=== PATIENT | female | born 1930 | race Caucasian/White ===

== ENCOUNTER 2017-08-08 12:33 | Observation (INO) ==
[2017-08-08 13:33] LABS: Basophils % 0.3 %; Eosinophils % 0.1 %; Hematocrit 40.9 % (35.3-44.9); Hemoglobin 13.3 g/dL (11.5-15.4); Immature Granulocytes % 0.3 % (0-4); Lymphocytes # 2.8 K/mcL (0.6-4.6); Lymphocytes % 36.8 %; Mean Corpuscular HGB Conc 32.5 g/dL (31.6-35.5); Mean Corpuscular Hemoglobin 27.7 pg (28.0-33.3); Mean Platelet Volume 9.2 fL (9.4-12.4); Monocytes # 0.6 K/mcL (0.0-1.3); Neutrophils # 4.1 K/mcL (1.6-8.9); Platelet Count 241 K/mcL (140-400); Red Blood Count 4.81 M/mcL (3.82-4.97); Red Cell Distribution Width 14.4 % (11.5-14.5); Segmented Neutrophils % 54.5 %
[2017-08-08 14:03] LABS: Potassium 3.3 mEq/L (3.5-5.1)
--- NOTE | 2017-08-08 14:10 | Emergency Department Note ---
START Narrative - START START: I examined this patient and my medical decision-making was reviewed with the Resident Physician. I agree with the documented findings, disposition and treatment plan as described except to the extent set forth below. 86-year-old female presented to the emergency room with cough and shortness of breath. Patient states she has been sick for over a week. States that they treated her for flu like symptoms about a week and a half ago. She feels more short of breath and is coughing more now. She denies any chest pain. She does not or home oxygen. No smoking. She lives at home with her . She states she came in the ER due to the increasing coughing and shortness of breath. She states she has not felt better in the past week. They were concerned that she was developing a pneumonia. Her x-ray does not show pneumonia today. We will workup from a cardiac standpoint as well for the shortness of breath and dyspnea on exertion.
[2017-08-08] MEDS ORDERED: Ipratropium/Albuterol Neb 3 ML IH ONE (14:40)
--- NOTE | 2017-08-08 14:49 | Emergency Department Note ---
Disposition Clinical Impression: Wheezing, Cough, Weakness Chest pain Qualifiers: Chest pain type: unspecified Qualified Code(s): R07.9 - Chest pain, unspecified Disposition: Admitted As Inpatient Condition: Good Referrals: Angely Michaels CNP [Primary Care Provider] - SOB HPI - General Chief Complaint: ED Shortness of Breath/Dyspnea Stated Complaint: JORGE,Cough Time Seen by Provider: 08/08/17 13:00 Source: patient Limitations: no limitations Nursing Notes Reviewed: Yes Vital Signs Reviewed: Yes - History of Present Illness Patient presents for evaluation of chest pain and shortness of breath. Shortness of breath and cough with intermittent sputum production started proximally 2 weeks ago. She was seen by her PCP and started on Tamiflu for what they thought was influenza. No specific testing was done. The patient has continued to have symptoms with no relief to the Tamiflu. She developed shortness of breath last night with increased work of breathing. concerned with her overall status as well as associated weakness and fatigue and brought her to the emergency department to be evaluated. On evaluation she complains of shortness of breath and cough. Family states that she has had intermittent subjective fevers. The patient states that she had a burning left- sided chest pain but is unable to further characterize. Not worse with walking. Not worse with inspiration. "Just a burning". - Related Data Home Medications Medication Instructions Recorded Confirmed Benzonatate [Tessalon] 100 mg PO TID PRN 08/08/17 08/08/17 Lisinopril [Zestril] 20 mg PO DAILY 08/08/17 08/08/17 hydroCHLOROthiazide 25 mg PO DAILY 08/08/17 08/08/17 [Hydrochlorothiazide] Allergies Allergy/AdvReac Type Severity Reaction Status Date / Time No Known Allergies Allergy Verified 08/08/17 12:40 Review of Systems: CONSTITUTIONAL: No weight loss, fever, chills, weakness or fatigue. HEENT: Eyes: No visual changes. Ears, Nose, Throat: No hearing loss, difficulty talking or unable to swallow. SKIN: No rash or itching. CARDIOVASCULAR: Chest pain No palpitations or edema. RESPIRATORY: Shortness of breath with cough but no sputum production GASTROINTESTINAL: No anorexia, nausea, vomiting or diarrhea. No abdominal pain or blood. GENITOURINARY: No burning on urination or hematuria. NEUROLOGICAL: No headache, dizziness, syncope, paralysis, ataxia, numbness or tingling in the extremities. No change in bowel or bladder control. MUSCULOSKELETAL: No muscle pain, back pain, joint pain or stiffness. Past Medical History - Past Medical History Medical history: Reports: non-contributory, hypertension Psychiatric history: Reports: no psych history - Social History Smoking Status: Never smoker Smokeless Tobacco Status: No Alcohol use: Reports: none Drug use: Reports: none Physical Exam General: Well appearing, nontoxic, no acute distress Head: Normocephalic Atraumatic Eyes: PERRL, EOMI ENT: Airway patent, no stridor Neck: supple, no meningismus Chest: Diffuse expiratory wheezing Cardiac: Regular rate and rhythm, no murmurs, rubs or gallops Abdomen: soft, nontender, nondistended; no guarding, rebound, or tenderness to percussion Musculoskeletal: Calves symmetric, nontender, no palpable cord Skin: No rash, normal skin tone Neuro: Alert and Oriented to person, place, and time; No focal deficit, CN 2-12 symmetric and intact - General Limitations: no limitations General appearance: alert, in no apparent distress Course - Reevaluation(s) Reevaluation #1: Patient's initial evaluation does not show specific cause. Patient does have wheezing with no history of COPD. Chest x-ray shows lengthened diaphragms as well as elongated heart compared to previous. Patient received breathing treatment and steroids. Patient influenza is negative. Patient was walked in the emergency department. Upon returning to the bed her pulse ox was 90%. I discussed with her her further treatment options and the patient and her family state that due to her having more trouble breathing and a harder time getting around but do not feel comfortable taking her home and following up with PCP. At this time, due to the worsening respiratory status and wheezing and weakness with associated chest pain - patient will be brought in to the hospital for further evaluation. - Consultations Consultation #1: Discussed with hospitalist, Dr. Galvin. Patient accepted for admission. Vital Signs Temperature 98.0 F 08/08/17 12:36 Pulse Rate 92 08/08/17 12:36 Respiratory Rate 18 08/08/17 12:36 Blood Pressure 151/68 08/08/17 12:36 O2 Sat by Pulse Oximetry 94 08/08/17 12:36 Temperature 98.0 F 08/08/17 12:36 Pulse Rate 88 08/08/17 16:18 Respiratory Rate 18 08/08/17 16:18 Blood Pressure 147/85 08/08/17 16:18 O2 Sat by Pulse Oximetry 95 08/08/17 16:18 Oxygen Delivery Oxygen Delivery Nasal Cannula Shortness of Breath/Dyspnea - Medical Records Medical records reviewed: Yes I reviewed the patient's medical records. - Lab Data Lab results reviewed: Yes I reviewed the patient's lab results. Result diagrams: 08/08/17 13:23 08/08/17 13:23 Lab Results 08/08/17 08/08/17 08/08/17 Range/Units 13:23 13:23 13:23 WBC 7.5 (4.3-11.1) K/mcL RBC 4.81 (3.82-4.97) M/mcL Hgb 13.3 (11.5-15.4) g/dL Hct 40.9 (35.3-44.9) % MCV 85.0 (83.0-100.0) fL MCH 27.7 L (28.0-33.3) pg MCHC 32.5 (31.6-35.5) g/dL RDW 14.4 (11.5-14.5) % Plt Count 241 (140-400) K/mcL MPV 9.2 L (9.4-12.4) fL Immature Gran % 0.3 (0-4) % Seg Neutrophils % 54.5 % Lymphocytes % 36.8 % Monocytes % 8.0 % Eosinophils % 0.1 % Basophils % 0.3 % Neutrophils # 4.1 (1.6-8.9) K/mcL Lymphocytes # 2.8 (0.6-4.6) K/mcL Monocytes # 0.6 (0.0-1.3) K/mcL Eosinophils # 0.0 (0.0-0.6) K/mcL Basophils # 0.0 (0.0-0.2) K/mcL Sodium 134 L (136-145) mEq/L Potassium 3.3 L (3.5-5.1) mEq/L Chloride 97 L (98-107) mEq/L Carbon Dioxide 26 (23-29) mEq/L BUN 18 (8-23) mg/dL Creatinine 1.25 H (0.60-1.20) mg/dL Est GFR ( Amer) 49 L (> 60) Est GFR (Non-Af Amer) 41 L (> 60) BUN/Creatinine Ratio 14 (6-26) Glucose 100 (70-105) mg/dL Calculated Osmolality 280 (280-300) Lactic Acid (0.5-2.2) mmol/L Calcium 9.0 (8.6-10.3) mg/dL Troponin I < 0.03 (< 0.04) ng/mL B-Natriuretic Peptide (Less than 100) pg/mL Specimen Rejected 08/08/17 08/08/17 08/08/17 Range/Units 13:23 13:23 15:05 WBC (4.3-11.1) K/mcL RBC (3.82-4.97) M/mcL Hgb (11.5-15.4) g/dL Hct (35.3-44.9) % MCV (83.0-100.0) fL MCH (28.0-33.3) pg MCHC (31.6-35.5) g/dL RDW (11.5-14.5) % Plt Count (140-400) K/mcL MPV (9.4-12.4) fL Immature Gran % (0-4) % Seg Neutrophils % % Lymphocytes % % Monocytes % % Eosinophils % % Basophils % % Neutrophils # (1.6-8.9) K/mcL Lymphocytes # (0.6-4.6) K/mcL Monocytes # (0.0-1.3) K/mcL Eosinophils # (0.0-0.6) K/mcL Basophils # (0.0-0.2) K/mcL Sodium (136-145) mEq/L Potassium (3.5-5.1) mEq/L Chloride (98-107) mEq/L Carbon Dioxide (23-29) mEq/L BUN (8-23) mg/dL Creatinine (0.60-1.20) mg/dL Est GFR ( Amer) (> 60) Est GFR (Non-Af Amer) (> 60) BUN/Creatinine Ratio (6-26) Glucose (70-105) mg/dL Calculated Osmolality (280-300) Lactic Acid 1.1 (0.5-2.2) mmol/L Calcium (8.6-10.3) mg/dL Troponin I (< 0.04) ng/mL B-Natriuretic Peptide 18 (Less than 100) pg/mL Specimen Rejected Hemolyzed - Radiology Data Radiology results reviewed: Yes I reviewed the patient's radiology results. - EKG Data EKG attestation: Yes I reviewed and interpreted this EKG. EKG results narrative: EKG shows sinus rhythm with occasional PVCs. Ventricular rate 84. MI 160. QRS 78. QTC 396. No significant ST elevations or depressions.
[2017-08-08] MEDS ORDERED: methylPREDNISolone 125 MG/2 ML VIAL IVP ONE (15:23)
[2017-08-08] MEDS ORDERED: Ondansetron 4 MG/2 ML VIAL IVP PRN (16:49)
[2017-08-08] MEDS ORDERED: Naloxone 0.4 MG/ML INJ IVP PRN (16:49)
[2017-08-08] MEDS ORDERED: *HR* HYDROcodone/Acet 5/325 mg TABLET PO PRN (16:49)
[2017-08-08] MEDS ORDERED: Acetaminophen 325 MG TABLET PO PRN (16:49)
--- NOTE | 2017-08-08 17:29 | Internal Med History&Physical ---
Date of Encounter: 08/08/17 Time of Encounter: 17:26 Assessment and Plan (1) COPD exacerbation Current visit: Yes Status: Acute Patient with no known history of COPD who presented to the ER with complaints of greater than 1 week shortness of breath, cough, weakness and hypoxia. Associated diffuse wheezing. Continue prednisone, Levaquin, DuoNeb's. Continue supplementation with oxygen. Recommended PFT as outpatient. Obtain echocardiogram to rule out pulmonary hypertension and diastolic dysfunction. (2) Hypoxia Current visit: Yes Status: Acute As above, wean as tolerated. (3) HTN (hypertension) Current visit: Yes Status: Chronic Controlled, continue home meds Qualifiers: Hypertension type: essential hypertension Qualified Code(s): I10 - Essential (primary) hypertension (4) CKD (chronic kidney disease) stage 3, GFR 30-59 ml/min Current visit: Yes Status: Chronic Renal function is at baseline, follow retroperitoneal [facility] Internal Medicine - H&P: HPI Chief complaint: Shortness of breeath Admitted From: Home Plans for Post Hospital Care: Home History of present illness: Ms. Mack is a 86 year old female who was previously independent prior to this illness with medical history of hypertension, chronic kidney disease stage III. Patient is seen and evaluated at the bedside with her children. Patient's illness dates to 1 week ago when she developed flulike symptoms with subjective fevers, cough, myalgias headaches pleuritic chest pain. She presented to her primary care physician treated her with Tamiflu, given to her flu test was negative. However patient reports since completing the medication , her symptoms have been worsening. She continues to have pleuritic chest pain , worse when she coughs, myalgias, and difficulty breathing associated with weakness. She denies sick contacts, recent travels. She denies orthopnea, she denies leg swelling. She denies nausea or vomiting or change in abdominal, bowel or urinary habits. The patient has never smoked, but has secondary exposure for several years. In the ER, patient was found to be hypoxic with oxygen saturation ranging from 80-89% on room air at rest improving with oxygen to 98%. This is after treatment with several nebs and Solu-Medrol. On examination patient is wheezing diffusely in both lung lopez. She has no pedal edema. Her workup is unremarkable except for hypokalemia of 3.3. BNP is negative. CBC is within normal limits. Renal function is at baseline. Chest x-ray is negative for infiltrates. Patient has a living will, and she is DNR/DNI. Past Med Surg Social Fam HX - Past Medical History Medical history: non-contributory, hypertension, renal disease Psychiatric history: no psych history - Past Surgical History Surgical History: cholecystectomy - Social History Smoking Status: Never smoker Smokeless Tobacco Status: No Alcohol use: none Drug use: none Internal Medicine - H&P: Meds Benzonatate [Tessalon] 100 mg PO TID PRN 08/08/17 [History] Lisinopril [Zestril] 20 mg PO DAILY 08/08/17 [History] hydroCHLOROthiazide [Hydrochlorothiazide] 25 mg PO DAILY 08/08/17 [History] 3 Allergy/AdvReac Type Severity Reaction Status Date / Time No Known Allergies Allergy Verified 08/08/17 12:40 All Systems PM: A 10-system review of systems was performed and is negative for pertinent findings except as documented above in the HPI. - Constitutional Constitutional: chills, fever(s) - EENT Eyes: no change in vision, no discharge, no pain, no photophobia Ears: no ear discharge, no ear pain, no tinnitus Nose, mouth and throat: no dysphagia, no nasal discharge, no neck pain, no sore throat - Cardiovascular Cardiovascular ROS IM: chest pain - Respiratory Respiratory: cough, dyspnea, chest congestion - Gastrointestinal Gastrointestinal: no abdominal pain, no diarrhea, no hematemesis, no hematochezia, no melena, no nausea, no vomiting - Genitourinary Genitourinary: no change in urinary stream, no dysuria, no flank pain, no hematuria - Musculoskeletal Musculoskeletal ROS IM: no numbness, no tingling - Integumentary Integumentary IM: no rash, no unusual bruising - Neurological Neurological ROS: no confusion, no convulsions, no focal weakness, no numbness, no tingling, no tremor(s) - Hematologic/Lymphatic Hematologic/Lymphatic: no easy bruising - Constitutional Vitals: Temp Pulse Resp BP Pulse Ox 98.0 F 75 16 155/69 96 08/08/17 12:36 08/08/17 17:14 08/08/17 17:14 08/08/17 17:14 08/08/17 17:14 Gen. examination: Patient is calm, sitting upright in bed in no form of distress. Afebrile, not tachycardic. Hypoxic on room air at rest oxygen saturation 89-90%. Improved promptly to 98% on 2 L of oxygen by nasal cannula. Head: Atraumatic HEENT: Dry oral mucosa, not cyanotic, not pale sclerae is anicteric. Neuro: Alert and oriented 3 extremities no slurred speech no focal deficits. chest examination: diffuse widespread bilateral expiratory wheezing in both lung lopez. no chest wall tenderness. heart: s1, s2 no murmurs. abdomen: obese, soft nontender not acute. extremities: no pedal edema musculoskeletal: no focal tenderness. skin: no rash Internal Med - H&P Results - Labs CBC & Chem 7: 08/08/17 13:23 08/08/17 13:23
[2017-08-08] MEDS: levoFLOXacin 500 MG TABLET PO SCH (18:54)
[2017-08-08] MEDS: Ipratropium/Albuterol Neb 3 ML IH SCH (21:37)
[2017-08-09] MEDS: Ipratropium/Albuterol Neb 3 ML IH SCH ×4 (03:45→22:24)
[2017-08-09 05:58] LABS: Hematocrit 38.7 % (35.3-44.9); Hemoglobin 12.9 g/dL (11.5-15.4); Mean Corpuscular HGB Conc 33.3 g/dL (31.6-35.5); Mean Corpuscular Hemoglobin 27.8 pg (28.0-33.3); Mean Corpuscular Volume 83.4 fL (83.0-100.0); Mean Platelet Volume 9.5 fL (9.4-12.4); Platelet Count 253 K/mcL (140-400); Red Blood Count 4.64 M/mcL (3.82-4.97); Red Cell Distribution Width 13.9 % (11.5-14.5)
[2017-08-09 06:07] LABS: Calcium 9.1 mg/dL (8.6-10.3); Potassium 3.9 mEq/L (3.5-5.1)
[2017-08-09] MEDS: predniSONE 20 MG TABLET PO SCH (08:54)
[2017-08-09] MEDS: hydroCHLOROthiazide 25 MG TABLET PO SCH (08:55)
[2017-08-09] MEDS: Lisinopril 20 MG TABLET PO SCH (08:55)
[2017-08-09] MEDS: levoFLOXacin 500 MG TABLET PO SCH (08:55)
--- NOTE | 2017-08-09 16:16 | Electrocardiograph Report ---
[address] [place], [place] [address] Test Date: 2017-08-08 Pat Name: Rosa Mack Department: 102 Room: 3B22 Gender: F Rn Ortho: [facility] : 1930 Requested By: Angus Redmond Order Number: [id number] Reading MD: Viktor Heller MD Measurements Intervals [place] Rate: 84 P: 17 RI: 162 QRS: 24 QRSD: 78 T: -3 QT: 355 QTc: 396 Interpretive Statements SINUS RHYTHM WITH OCCASIONAL VENTRICULAR PREMATURE COMPLEXES LOW QRS VOLTAGE IN PRECORDIAL LEADS BASELINE ARTIFACT Electronically Signed On 08-09-2017 16:15:33 EST by Viktor Heller MD
--- NOTE | 2017-08-09 17:27 | Internal Med Progress Note ---
Date of Encounter: 08/09/17 Time of Encounter: 17:25 - Assessment and plan (1) COPD exacerbation Current Visit: Yes Status: Acute Assessment and plan: 87 year old female who was previously independent with medical history of hypertension, chronic kidney disease stage III. Patient's illness dates to 1 week ago when she developed flulike symptoms with subjective fevers, cough, myalgias headaches pleuritic chest pain. She presented to her primary care physician who treated her with Tamiflu, given to her although the flu test was negative. However patient reports since completing the medication, her symptoms have been worsening. She continues to have pleuritic chest pain, worse when she coughs, myalgias, and difficulty breathing associated with weakness. She denied sick contacts, orthopnea, leg swelling, nausea or vomiting or change in abdominal, bowel or urinary habits. The patient has never smoked, but had secondary exposure for several years. Patient with no known history of COPD who presented to the ER with complaints of greater than 1 week shortness of breath, cough, weakness and hypoxia. Associated diffuse wheezing. Continue prednisone, Levaquin, DuoNeb's. Continue supplementation with oxygen. Recommended PFT as outpatient. Echocardiogram report reviewed without pulmonary hypertension and mild left ventricular diastolic dysfunction. Normal right ventricular structure and function Negative for influenza A/B antigen (2) Hypoxia Current Visit: Yes Status: Acute Assessment and plan: O2 saturations 95-94 on 2 L nasal cannula, found to be 90% on room air at rest. 6 minute walk test before discharge PFTs as an outpatient (3) HTN (hypertension) Current Visit: Yes Status: Chronic Assessment and plan: Blood pressure is stable Continue medications Qualifiers: Hypertension type: essential hypertension Qualified Code(s): I10 - Essential (primary) hypertension (4) CKD (chronic kidney disease) stage 3, GFR 30-59 ml/min Current Visit: Yes Status: Chronic Assessment and plan: Her BUN/creatinine are baseline Avoid nephrotoxic agents - Subjective Interval history: Patient sitting up in the bed with family members at the bedside. She has no complaints of chest pain, fever, chills, nausea, constipation, abdominal pain, headache, or syncope. She does report that she continues to wheeze and feels dyspneic with any exertion. She was positive for sweats overnight but did not have chills. She states this is her 87th birthday. - Constitutional Vitals: Temp Pulse Resp BP Pulse Ox 98.0 F 95 16 149/76 90 08/09/17 15:00 08/09/17 15:00 08/09/17 15:40 08/09/17 15:00 08/09/17 15:40 General appearance: Present: cooperative, A&O X 3, pleasant, no acute distress, answers questions appropriately - Head Head exam: Present: atraumatic, normocephalic - Eye Eye exam: Present: conjuntiva pink, sclera anicteric - Neck Neck exam general surgery: Present: supple, trachea midline. Absent: lymphadenopathy, tenderness - Respiratory Respiratory exam: Present: decreased breath sounds, prolonged expiratory phase, wheezes. Absent: accessory muscle use, chest wall tenderness, rales, rhonchi, stridor - Cardiovascular Cardiovascular exam: Present: RRR, +S1, +S2. Absent: diastolic murmur, gallop, rubs, systolic murmur - GI/Abdominal GI/Abdominal exam: Present: normal bowel sounds, soft, no peritoneal signs. Absent: distended, tenderness - Extremities Exam Extremities exam: Present: warm, radial pulses palpable and symmetrical. Absent : calf tenderness, cyanotic, pedal edema - Neurological Exam Neurological exam: Present: CN II-XII intact, oriented X3, no focal deficits. Absent: pronater drift, facial droop, speech deficit - Skin Skin exam: Present: dry, intact Internal Medicine: Result - Labs CBC & Chem 7: 08/09/17 05:25 08/09/17 05:25 Labs: Short CBC 08/09/17 Range/Units 05:25 WBC 4.8 (4.3-11.1) K/mcL Hgb 12.9 (11.5-15.4) g/dL Hct 38.7 (35.3-44.9) % Plt Count 253 (140-400) K/mcL BMP 08/09/17 05:25 Sodium 133 L Potassium 3.9 Chloride 96 L Carbon Dioxide 25 BUN 19 Creatinine 1.13 Glucose 149 H Calcium 9.1 Cardiac Enzymes 08/08/17 Range/Units 19:05 Troponin I < 0.03 (< 0.04) ng/mL - Impressions Impressions Echocardiogram 08/09/17 16:47 Impressions: LVEF 65-70%. Asymmetric basal septal hypertrophy. No LVOTO. Mild left ventricular diastolic dysfunction. Normal right ventricular structure and function. Mild tricuspid regurgitation. Mild pulmonic regurgitation. Plaquing of the ascending aorta. Left Ventricular Wall Motion: Rest Echo Findings All wall segments showed normal motion. Findings: Study Quality * Technically adequate exam. ECG Findings * Normal sinus rhythm. Left Ventricle * LVEF 65-70%. * Asymmetric basal septal hypertrophy. No LVOTO. * Mild left ventricular diastolic dysfunction. Right Ventricle * Normal right ventricular structure and function. Left Atrium * Normal left atrial size. Right Atrium * Normal right atrial size. Mitral Valve * Normal mitral valve structure. * No mitral stenosis. * Trace mitral regurgitation. Aortic Valve * No aortic regurgitation. * Trileaflet aortic valve. * No aortic stenosis. Tricuspid Valve * Tricuspid valve not well visualized. * Mild tricuspid regurgitation. Pulmonic Valve * Pulmonic valve is not well visualized. * No pulmonic stenosis. * Mild pulmonic regurgitation. Pulmonary Artery * Pulmonary artery not well visualized. Aorta * Normally sized aortic root. * Plaquing of the ascending aorta. Pericardium * There is no pericardial effusion present. Interatrial Septum * No evidence of PFO by color Doppler. IVC * The IVC is not well evaluated. Consult Discharge Plan - Plan Referrals: Angely Michaels CNP [Primary Care Provider] - 08/13/17 10:30 am
[2017-08-10] MEDS: Ipratropium/Albuterol Neb 3 ML IH SCH ×4 (04:22→21:22)
[2017-08-10] MEDS: levoFLOXacin 500 MG TABLET PO SCH (07:53)
[2017-08-10] MEDS: predniSONE 20 MG TABLET PO SCH (07:53)
[2017-08-10] MEDS: Lisinopril 20 MG TABLET PO SCH (07:54)
[2017-08-10] MEDS: hydroCHLOROthiazide 25 MG TABLET PO SCH (07:54)
--- NOTE | 2017-08-10 17:30 | Internal Med Progress Note ---
Date of Encounter: 08/10/17 Time of Encounter: 17:28 - Assessment and plan (1) COPD exacerbation Current Visit: Yes Status: Acute Assessment and plan: 87 year old female who was previously independent with medical history of hypertension, chronic kidney disease stage III. Patient's illness dates to 1 week ago when she developed flulike symptoms with subjective fevers, cough, myalgias headaches pleuritic chest pain. She presented to her primary care physician who treated her with Tamiflu, given to her although the flu test was negative. However patient reports since completing the medication, her symptoms have been worsening. She continues to have pleuritic chest pain, worse when she coughs, myalgias, and difficulty breathing associated with weakness. She denied sick contacts, orthopnea, leg swelling, nausea or vomiting or change in abdominal, bowel or urinary habits. The patient has never smoked, but had secondary exposure for several years. Patient with no known history of COPD who presented to the ER with complaints of greater than 1 week shortness of breath, cough, weakness and hypoxia. Associated diffuse wheezing. Continue prednisone, Levaquin, DuoNeb's. Continue supplementation with oxygen. Recommended PFT as outpatient. Echocardiogram report reviewed without pulmonary hypertension and mild left ventricular diastolic dysfunction. Normal right ventricular structure and function Negative for influenza A/B antigen 6 minute walk test (2) Hypoxia Current Visit: Yes Status: Acute Assessment and plan: O2 saturations 95-94 on 2 L nasal cannula, found to be 90% on room air at rest. 6 minute walk test before discharge PFTs as an outpatient (3) HTN (hypertension) Current Visit: Yes Status: Chronic Assessment and plan: Blood pressure is stable Continue medications Qualifiers: Hypertension type: essential hypertension Qualified Code(s): I10 - Essential (primary) hypertension (4) CKD (chronic kidney disease) stage 3, GFR 30-59 ml/min Current Visit: Yes Status: Chronic Assessment and plan: Her BUN/creatinine are baseline Avoid nephrotoxic agents - Subjective Interval history: Patient sitting up in the bed with family members at the bedside. She has no complaints of chest pain, fever, chills, nausea, constipation, abdominal pain, headache, or syncope. She states there is nothing wrong with her and she is ready to go home. She disagrees that she needs to stay another day or so secondary to her breathing. She stated it was all nonsense that she is here. She did not want to talk to me when I told her she was staying and became rather upset. Her son was at the bedside and is going to reason with her that she does need to stay. He agrees that she does not appear ready to go home. - Constitutional Vitals: Temp Pulse Resp BP Pulse Ox 98.0 F 85 16 119/55 93 08/10/17 15:10 08/10/17 15:10 08/10/17 15:10 08/10/17 15:10 08/10/17 15:10 General appearance: Present: A&O X 3, no acute distress, answers questions appropriately. Absent: cooperative, pleasant - Head Head exam: Present: atraumatic, normocephalic - Eye Eye exam: Present: conjuntiva pink, sclera anicteric - Neck Neck exam general surgery: Present: supple, trachea midline. Absent: lymphadenopathy - Respiratory Respiratory exam: Present: decreased breath sounds, prolonged expiratory phase, rhonchi, wheezes. Absent: accessory muscle use, rales - Cardiovascular Cardiovascular exam: Present: RRR, +S1, +S2. Absent: diastolic murmur, gallop, rubs, systolic murmur - GI/Abdominal GI/Abdominal exam: Present: normal bowel sounds, soft, no peritoneal signs. Absent: distended, tenderness - Extremities Exam Extremities exam: Present: warm, radial pulses palpable and symmetrical. Absent : calf tenderness, cyanotic, pedal edema - Neurological Exam Neurological exam: Present: oriented X3, no focal deficits. Absent: pronater drift, facial droop, speech deficit - Skin Skin exam: Present: intact, warm Additional comments: Diaphoretic Internal Medicine: Result - Labs CBC & Chem 7: 08/09/17 05:25 08/09/17 05:25 Consult Discharge Plan - Plan Referrals: Brando,Angely Mena CNP [Primary Care Provider] - 08/13/17 10:30 am
[2017-08-11] MEDS: Ipratropium/Albuterol Neb 3 ML IH SCH ×2 (03:21→11:02)
[2017-08-11 07:36] VITALS: BP 135/74
[2017-08-11] MEDS: hydroCHLOROthiazide 25 MG TABLET PO SCH (07:49)
[2017-08-11] MEDS: predniSONE 20 MG TABLET PO SCH (07:49)
[2017-08-11] MEDS: levoFLOXacin 500 MG TABLET PO SCH (07:49)
[2017-08-11] MEDS: Lisinopril 20 MG TABLET PO SCH (07:49)
--- NOTE | 2017-08-11 11:00 | Discharge Summary ---
Date of Encounter: 08/11/17 Time of Encounter: 10:58 - Discharge Diagnosis (1) COPD exacerbation Priority: Primary Status: Acute Comments: Patient with no known history of COPD who presented to the ER with complaints of greater than 1 week shortness of breath, cough, weakness and hypoxia. Associated diffuse wheezing. Continue prednisone, Levaquin, DuoNeb's on discharge No Home oxygen needed. Recommended PFT as outpatient. Echocardiogram reviewed with no pulmonary hypertension or diastolic dysfunction. (2) Hypoxia Priority: Primary Status: Resolved Comments: No O2 needs on walk test evaluation (3) HTN (hypertension) Priority: Secondary Status: Chronic Comments: Blood pressure is stable continue her medications Qualifiers: Hypertension type: essential hypertension Qualified Code(s): I10 - Essential (primary) hypertension (4) CKD (chronic kidney disease) stage 3, GFR 30-59 ml/min Priority: Secondary Status: Chronic Comments: BN creatinine are baseline, avoid nephrotoxic agents - Discharge Medications Prescriptions: Ipratropium/Albuterol Neb [Duoneb] 3 ml IH TID #90 inhsol levoFLOXacin [Levaquin] 500 mg PO DAILY #4 tablet predniSONE [PredniSONE] 10 mg PO DAILY #30 tablet Home Medications: Benzonatate [Tessalon] 100 mg PO TID PRN 08/08/17 [History] Lisinopril [Zestril] 20 mg PO DAILY 08/08/17 [History] hydroCHLOROthiazide [Hydrochlorothiazide] 25 mg PO DAILY 08/08/17 [History] Ipratropium/Albuterol Neb [Duoneb] 3 ml IH TID #90 inhsol 08/11/17 [Rx] levoFLOXacin [Levaquin] 500 mg PO DAILY #4 tablet 08/11/17 [Rx] predniSONE [PredniSONE] 10 mg PO DAILY #30 tablet 08/11/17 [Rx] Allergies/Adverse Reactions: 3 Allergy/AdvReac Type Severity Reaction Status Date / Time No Known Allergies Allergy Verified 08/08/17 12:40 Date of admission: 08/08/17 17:13 Primary care physician: Angely Michaels CNP Discharging clinician: Alexus Burnett Anticipated date of discharge: 08/11/17 - Patient Status Disposition: Home, Self-Care Condition: Good Functional capacity at discharge: independent ambulation Overall status at discharge: patient is progressing back to baseline - Discharge Instructions Follow Up With: Angely Michaels CNP [Primary Care Provider] - 08/13/17 10:30 am Forms: ED Satisfaction Letter Interval History: The patient is sitting up in bed with family members at the bedside. She is very anxious to go home and is very improved from yesterday. 6 minute walk test with no O2 needs. Her lung sounds are much improved however I explained she will need to go home on an antibiotic, steroid taper, and a nebulizer. The family is in agreement and someone will stay with her for the next few days. She has a follow-up appointment with her primary care on Sunday and they will see that she gets to that appointment. She denies chest pain, shortness breath, palpitations, fever, chills, sweats, weakness, dizziness or syncope, headache or changes in bowel or bladder. Tolerating her diet and has been up in the room without any difficulty Hospital course: Ms. Mack is a 87 year old female with no known history of COPD who presented to the ER with complaints of greater than 1 week shortness of breath, cough, weakness and hypoxia. Associated diffuse wheezing. She had a recent viral illness on Tamiflu although her viral screen was negative for flu. She was placed on prednisone and Levaquin and do supplemental O2. Echocardiogram was reviewed without pulmonary hypertension. Her knee approximately has resolved on day of discharge. Her blood pressure and chronic kidney disease are at baseline. No changes in his home medications. Patient will return home with a nebulizer and DuoNeb's as ordered. She is to follow-up with her family doctor at a arranged appointment on this Sunday. - Time Spent with Patient Total time spent providing and/or coordinating discharge services: Less than 30 minutes - Constitutional Vitals: Temp Pulse Resp BP Pulse Ox 98.7 F 85 16 135/74 96 08/11/17 07:32 08/11/17 07:32 08/11/17 07:32 08/11/17 07:32 08/11/17 07:32 General appearance: Present: cooperative, A&O X 3, pleasant, no acute distress, answers questions appropriately - Head Head exam: Present: atraumatic, normocephalic - Eye Eye exam: Present: conjuntiva pink, sclera anicteric - Neck Neck exam general surgery: Present: supple, trachea midline. Absent: lymphadenopathy - Respiratory Respiratory exam: Present: CTAB. Absent: accessory muscle use, rales, respiratory distress, rhonchi, wheezes Additional comments: Patient has much better airflow today with a very mild wheeze on forced expiration but no bronchospasm. No Accessory muscle use - Cardiovascular Cardiovascular exam: Present: RRR, +S1, +S2. Absent: diastolic murmur, gallop, rubs, systolic murmur - GI/Abdominal GI/Abdominal exam: Present: normal bowel sounds, soft, no peritoneal signs. Absent: distended, tenderness - Extremities Exam Extremities exam: Present: warm, radial pulses palpable and symmetrical. Absent : calf tenderness, cyanotic, pedal edema - Neurological Exam Neurological exam: Present: oriented X3, no focal deficits. Absent: pronater drift, facial droop, speech deficit - Skin Skin exam: Present: dry, intact, warm
== END 2017-08-11 12:45 | disposition home or self-care (01) ==
LOC: EMEROO 12:33 → 3BNU 12:33
PROVIDERS: ADMIT Internal Medicine; ATTEND Registered Nurse

== ENCOUNTER 2019-08-30 12:03 | Observation (INO) ==
[2019-08-30 12:51] LABS: Basophils # 0.1 K/mcL (0.0-0.2); Basophils % 0.6 %; Eosinophils % 0.3 %; Hematocrit 40.1 % (35.3-44.9); Hemoglobin 13.2 g/dL (11.5-15.4); Immature Granulocytes % 0.3 % (0-4); Lymphocytes # 3.4 K/mcL (0.6-4.6); Lymphocytes % 38.2 %; Mean Corpuscular HGB Conc 32.9 g/dL (31.6-35.5); Mean Corpuscular Hemoglobin 28.5 pg (28.0-33.3); Mean Corpuscular Volume 86.6 fL (83.0-100.0); Mean Platelet Volume 9.3 fL (9.4-12.4); Monocytes # 0.5 K/mcL (0.0-1.3); Monocytes % 6.1 %; Neutrophils # 4.8 K/mcL (1.6-8.9); Platelet Count 315 K/mcL (140-400); Red Blood Count 4.63 M/mcL (3.82-4.97); Segmented Neutrophils % 54.5 %; White Blood Count 8.8 K/mcL (4.3-11.1)
[2019-08-30 13:14] LABS: BUN/Creatinine Ratio 14 (6-26); Blood Urea Nitrogen 15 mg/dL (8-23); Calcium 9.6 mg/dL (8.6-10.3); Carbon Dioxide 25 mEq/L (23-29); Chloride 101 mEq/L (98-107); Glucose 102 mg/dL (70-105); Osmolality,Calculated 283 (280-300); Potassium 3.7 mEq/L (3.5-5.1); Sodium 136 mEq/L (136-145); Troponin I < 0.03 ng/mL (< 0.04); eGFR For African Americans > 60 (> 60); eGFR For Non-African Americans 50 (> 60)
[2019-08-30] MEDS ORDERED: Aspirin 81 MG TAB.CHEW PO ONE (13:33)
[2019-08-30] MEDS ORDERED: Naloxone 0.4 MG/ML INJ IVP PRN (16:07)
[2019-08-30] MEDS: *HR* Heparin 5,000 UNIT/ML VIAL SQ SCH (18:56)
[2019-08-30] MEDS ORDERED: Acetaminophen 325 MG TABLET PO ONE (23:40)
[2019-08-31 02:01] LABS: Hematocrit 37.2 % (35.3-44.9); Hemoglobin 11.7 g/dL (11.5-15.4); Mean Corpuscular HGB Conc 31.5 g/dL (31.6-35.5); Mean Platelet Volume 9.7 fL (9.4-12.4); Platelet Count 307 K/mcL (140-400); Red Blood Count 4.18 M/mcL (3.82-4.97); White Blood Count 8.6 K/mcL (4.3-11.1)
[2019-08-31 02:18] LABS: BUN/Creatinine Ratio 15 (6-26); Blood Urea Nitrogen 15 mg/dL (8-23); Calcium 9.2 mg/dL (8.6-10.3); Carbon Dioxide 27 mEq/L (23-29); Chloride 102 mEq/L (98-107); Glucose 89 mg/dL (70-105); Osmolality,Calculated 282 (280-300); Potassium 3.3 mEq/L (3.5-5.1); Sodium 136 mEq/L (136-145); eGFR For African Americans > 60 (> 60); eGFR For Non-African Americans 52 (> 60)
[2019-08-31] MEDS: *HR* Heparin 5,000 UNIT/ML VIAL SQ SCH (05:12)
[2019-08-31] MEDS ORDERED: Regadenoson 0.4 MG/5 ML SYRINGE IVP ONE (07:16)
[2019-08-31] MEDS ORDERED: hydroCHLOROthiazide 25 MG TABLET PO SCH (09:00)
[2019-08-31] MEDS ORDERED: Lisinopril 20 MG TABLET PO SCH (09:00)
[2019-08-31 13:46] VITALS: BP 158/82
== END 2019-08-31 14:54 | disposition home or self-care (01) ==
LOC: 3BNU 12:03 → EMEROOARM 12:03 → 3BNU 16:15
PROVIDERS: ADMIT Pharmacist; ATTEND Pharmacist